=== PATIENT | female | born 1995 | race Caucasian/White ===

== ENCOUNTER 2017-01-15 03:29 | Emergency (ER) | payer MEDICAID ==
[~2017-01-15] VITALS: Ht 167.6 cm; Wt 68.0 kg
[2017-01-15 03:37] VITALS: BP 119/80
--- NOTE | 2017-01-15 03:42 | NUR ---
TO ER BED 5
--- NOTE | 2017-01-15 03:48 | NUR ---
21/ requesing to have medication refill for Geodon and Strattera. Pt has hx of bipolar disorder and has been off her medications x1 month. Pt states "I thought I could be better without them." Pt crying, restless, c/o stress at work. Pt states "I'm working three job and going to school!" AOX4, VSS.
--- NOTE | 2017-01-15 03:53 | NUR ---
Patient being evaluated by Dr. Nix at bedside.
[2017-01-15 04:04] VITALS: BP 119/80
--- NOTE | 2017-01-15 04:04 | NUR ---
Patient discharged with v/s stable. Written and verbal after care instructions given and explained. Patient alert, oriented and verbalized understanding of instructions. Ambulatory with steady gait. All questions addressed prior to discharge. ID band removed. Patient advised to follow up with PMD. Rx of Geodon 40mg and Strattera 40mg given. Patient educated on indication of medication including possible reaction and side effects. Opportunity to ask questions provided and answered.
[2017-01-15 04:05] LABS: BARBITURATE, URINE NEG. ng/ml (NEG <=200); BENZODIAZEPINE, URINE NEG. ng/mL (NEG <=200); CANNABINOID, URINE POS. ng/mL (NEG <=50); COCAINE, URINE NEG. ng/mL (NEG <=300); OPIATE, URINE NEG. ng/mL (NEG <=2000); PHENCYCLIDINE SCREEN,URINE NEG. ng/mL (NEG <=25)
== END 2017-01-15 04:04 | disposition home or self-care (01) ==
LOC: MED 03:29
DX: Z76.0 Encounter for issue of repeat prescription (principal); F41.9 Anxiety disorder, unspecified; F31.9 Bipolar disorder, unspecified
CPT/HCPCS: 80305; 81002; 81025; 99283